=== PATIENT | male | born 1990 | race African-American/Black ===

== ENCOUNTER 2020-09-27 19:54 | Emergency (ER) | payer OTHER ==
[2020-09-27 20:19] VITALS: BP 127/63; PULSE 63; TEMP 98.6; BMI 23.0
[2020-09-27] MEDS ORDERED: KETOROLAC TROMETHAMINE 60 MG/2 ML VIAL IM ONE (20:30)
[2020-09-27] MEDS ORDERED: KETOROLAC TROMETHAMINE 60 MG/2 ML VIAL ONE (20:48)
== END 2020-09-27 21:20 | disposition home or self-care (01) ==
LOC: JER 19:54 → JERFT 19:54
PROC: 3E0233Z Introduction of Anti-inflammatory into Muscle, Percutaneous Approach (ICD-10-PCS; principal; 2020-09-27)
DX: S89.90XA Unspecified injury of unspecified lower leg, initial encounter (principal); S39.92XA Unspecified injury of lower back, initial encounter; S49.90XA Unspecified injury of shoulder and upper arm, unspecified arm, initial encounter; V89.2XXA Person injured in unspecified motor-vehicle accident, traffic, initial encounter
CPT/HCPCS: 73562-TC-LT-FY; 73562-TC-RT-FY; 99284-25